=== PATIENT | male | born 1990 | race Two or more races ===

== ENCOUNTER 2024-02-26 10:00 | Emergency (ER) | payer MEDICAID, SELFPAY ==
[2024-02-26 10:28] VITALS: BMI 29.0
--- NOTE | 2024-02-26 10:44 | PC.NURSE ---
called pt back, no answer at this time
[2024-02-26 10:56] VITALS: BP 156/91; PULSE 85; RESP 18; TEMP 37.2; O2SAT 100
--- NOTE | 2024-02-26 11:19 | PD.EDDIZZY ---
ED Dizzyness RME/HPI General Chief Complaint: Headache Stated Complaint: HEADACHE SINCE MONDAY S/P FALL HIT HEAD Time Seen by Provider: 02/26/24 10:42 Source: patient Arrival date/time: 02/26/24 10:28 33-year-old male evaluated in the emergency department for complaints of intermittent headache status post fall 6 days ago. Patient reports he drank during his Thanksgiving dinner and accidentally fell from the chair hitting his head. Reports having intermittent head pain since that day. Patient did not attempt any interventions or take any OTC medications prior to ED visit. Has not taken anything for his symptoms. He denies LOC, visual changes, diplopia, no nausea vomiting or neck pain. Mode of arrival: ambulatory Limitations: no limitations Related Data Previous Rx's ?Medication ?Instructions ?Recorded ibuprofen 600 mg tablet 600 mg PO Q8H PRN pain #30 tabs 02/26/24 Allergies Allergy/AdvReac Type Severity Reaction Status Date / Time No Known Allergies Allergy Verified 10/08/21 21:56 Review of Systems Review of Systems Systems Reviewed: All systems reviewed, normal except as documented Narrative Review of Systems: Gen: No fever, no chills, no weight loss, headache EYES: No discharge, no visual changes, no pain HEENT: No ear pain, no congestion, no sore throat PULM: No shortness of breath, no cough, no congestion CV: No chest pain, no dyspnea on exertion, no palpitations GI: No nausea, no vomiting, no diarrhea, no pain, no constipation : No frequency, no urgency, no dysuria Musc/skel: No joint pain, no back pain Skin: No rash Psyc: No hallucinations, no depression Heme/Lymph: No easy bleeding or bruising tendencies Neuro: No weakness, no headache ED Exam General Limitations: Present no limitations General appearance: Present alert and in no apparent distress Head Head exam: Present atraumatic, normocephalic and normal inspection Expanded Head Exam Head exam physical: Absent laceration, abrasion, contusion, hematoma, raccoon eyes, Jones's sign, CSF rhinorrhea or CSF otorrhea Eye Eye exam: Present normal appearance, PERRL and EOMI ENT ENT exam: Present normal exam, normal oropharynx and mucous membranes moist Neck Neck exam: Present normal inspection, full ROM and trachea midline Chest Chest inspection: Present normal inspection and symmetric chest wall rise Respiratory Respiratory exam: Present normal lung sounds bilaterally Cardiovascular Cardiovascular exam: Present regular rate, normal rhythm and normal heart sounds Abdominal Exam Abdominal exam: Present soft and normal bowel sounds Extremities Exam Extremities exam: Present normal inspection and full ROM Back Exam Back exam: Present normal inspection and full ROM Neurological Exam Neurological exam: Present alert, oriented X3 and CN II-XII intact Expanded Neurological Exam Patient oriented to: Present person, place and time Speech: Present fluid speech Cranial nerves: Normal: EOM function (II, III, IV, ), facial sensation (V), facial palsy (VII), gag reflex (IX) and tongue deviation (XII) Cerebellar function: Normal: finger to nose and heel to clayton Cerebellar function: Present normal gait Motor strength - LUE: 5/5 Motor strength - RUE: 5/5 Motor strength - LLE: 5/5 Motor strength - RLE: 5/5 Upper motor neuron exam: Normal: tasia neglect, pronator drift and Babinski sign Coma scale eye opening: spontaneous Coma scale motor response: obeys commands Coma scale verbal response: oriented Coma scale total: 15 Psychiatric Psychiatric exam: Present normal affect and normal mood Skin Skin exam: Present warm, dry, intact and normal color Course Quality Measures none Vital Signs Vital signs: Vital Signs Temperature 99 F 02/26/24 10:56 Pulse Rate 85 02/26/24 10:56 Respiratory Rate 18 02/26/24 10:56 Blood Pressure 156/91 H 02/26/24 10:56 Pulse Oximetry (%) 100 02/26/24 10:56 Oxygen Delivery Method Room Air 02/26/24 10:56 Dizziness MDM Narrative MDM Narrative:: 33-year-old male awake and alert concerns of intermittent headache for 6 days status post a mechanical fall. Based on his history patient has had no nausea no vomiting no changes of LOC or amnesia. The [place] CT Head Rule suggests a head CT is not necessary for this patient (sensitivity 83-100% for all intracranial traumatic findings, sensitivity 100% for findings requiring neurosurgical intervention). Vies patient of his symptoms change or there is any worsening symptoms please return to the emergency department for further evaluation. Patient data External records reviewed:: [facility] previous records Clinical information provided by:: patient Social determinants that could affect healthcare access:: none Patient has the following chronic illnesses:: none How is presenting disease/condition affected by chronic disease/condition?: no chronic disease Evaluation data The following diagnostics were reviewed and interpreted by me:: other (specify) Lab and/or radiology exams considered but not ordered:: Consider CT head, however patient does not demonstrate Interpretation Summary: n/a Medications / Prescriptions Medications or Prescriptions considered but not ordered:: no Medication administrations:: no Consultations Consultation(s) initiated? (list below): No Diagnosis Dizziness Differential Diagnosis: adverse reaction to drug and other (Headache, head contusion, scalp contusion,) Most likely diagnosis given after review of the tests above:: Headache, that is post fall Admission Indicated Admission indicated?: not indicated Admission Request Was there a request for admission?: No Disposition Plan Disposition Plan: Discharge Discharge Attestation Discharge Attestation: The patient and all family members were given an opportunity to ask questions and understood the discharge instructions. Discharge instructions specifically effects, indications for sooner follow up or return to the emergency department, and the expected course of current diagnosis. Patient condition: Stable Discharge Plan Plan Patient Disposition: HOME (Self Care) Patient condition on transfer: Stable Prescriptions/Referrals Prescriptions/Med Rec: New ibuprofen 600 mg tablet 600 mg PO Q8H PRN (Reason: pain) Qty: 30 0RF Problem List Clinical Impression: Head injury, acute, without loss of consciousness Patient/Caregiver Discharge Instructions Discharge Activity: activity as tolerated Education Materials: ED Head Injury (Adult) Additional Instructions: Lo evaluaron hoy en el Departamento de Emergencias por mareos despu?s de rand ca?da hace 5 maldonado. Rand evaluaci?n sugiere que lo m?s probable es que alex s?ntomas se deban a lanette contusion as mick. Le smart recetado meclizina e ibuprofeno para ayudar a aliviar alex s?ntomas. Noonday rand receta seg?n las indicaciones. Walt un seguimiento con rand m?dico de atenci?n primaria en 2 d?as. Regrese a la nupur de emergencias de inmediato si los s?ntomas empeoran o no est?n controlados, si empeoran el dolor de mick, el dolor de pecho, la dificultad para respirar, los v?mitos persistentes, los cambios en la visi?n, los desmayos o cualquier otro s?ntoma preocupante. Tej por elegirnos para rand atenci?n. You have been evaluated in the Emergency Department today for dizziness after your fall 1 weeks ago. Your evaluation suggests that your symptoms are most likely due head injury. You have been prescribed meclizine and ibuprofen to help relieve your symptoms. Please take your prescription as directed. Please follow up with your primary care doctor in 2 days. Return to the ER immediately for worsening or uncontrolled symptoms, worsening headache, chest pain, shortness of breath, persistent vomiting, vision changes, fainting, or for any other concerning symptoms. Thank you for choosing us for your care. Print Language: Indian Stand Alone Forms: Alla Award Info., Patient Portal Info Letter Attestation Attestation The patient was seen by the midlevel practitioner. I, the co-signing physician, was present during the entire ER visit. While I did not physically examine the patient, I was available for consultation as needed.
== END 2024-02-26 11:52 | disposition home or self-care (01) ==
LOC: SERX 11:32
PROVIDERS: Emergency Provider Emergency Medicine
DX: S09.90XA Unspecified injury of head, initial encounter (principal); W07.XXXA Fall from chair, initial encounter
CPT/HCPCS: 99281